=== PATIENT | male | born 2005 | race Caucasian/White ===

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

== ENCOUNTER 2023-07-11 13:32 | Emergency (ER) | payer OTHER, SELFPAY ==
--- NOTE | 2023-07-11 13:36 | ED.SKABFB ---
HPI - Skin/Abscess/Foreign Bdy General Chief complaint: Skin/Abscess/Foreign Body Stated complaint: Skin Sore Source: patient and RN notes reviewed History of Present Illness HPI narrative: 17 yo M presents to urgent care with complaints of a bump to the back of his left ear. Pt states his mom noticed it yesterday. Denies any pain from the bump, drainage, ear pain, fevers, chills, or itchiness to the bump. Related Data Allergies Allergy/AdvReac Type Severity Reaction Status Date / Time No Known Allergies Allergy Verified 05/22/22 10:12 Review of Systems Review of Systems: CONSTITUTIONAL: Denies fever, chills, or sweats. EYES: Denies visual changes, redness, or discharge. ENT: Denies otalgia and sore throat. reports bump to left ear CARDIOVASCULAR: Denies chest pain, palpitations, or edema. RESPIRATORY: Denies cough or dyspnea. GASTROINTESTINAL: Denies abdominal pain, nausea, vomiting, or diarrhea. GENITOURINARY: Denies dysuria or hematuria. SKIN: Denies rash or itching. MUSCULOSKELETAL: Denies back pain, joint pain, or myalgia. NEUROLOGIC: Denies headache, numbness, or weakness. Pertinent positives per HPI. [facility] Past Medical History Medical History (Updated 07/11/23 @ 13:45 by Rand Chávez APRN) Strep pharyngitis Surgical History Surgical History (Updated 05/26/22 @ 09:13 by Sarah Nolasco NP) H/O abdominal surgery Social History Social History (Updated 05/26/22 @ 09:14 by Sarah Nolasco NP) Smoking status: Never smoker Alcohol intake: never Substance use: never Living arrangements: with family Gender identity (if verbalized by the patient): Male Comments At the time of my signature, I reviewed and agree with the nursing past medical, surgical, social, and family history. There is no relevant family history pertinent to the patient complaint. Exam Narrative: GENERAL: This is a well-nourished, well-developed patient, in no apparent distress. HEAD: normocephalic, atraumatic. EYES: Sclera clear/white. Vision is grossly intact. EARS: External ears normal with exception of 1 cm cyst noted to left posterior helix. auditory canals clear and without drainage, TMs normal without perforation. Hearing grossly intact. NOSE: External nose normal with no obvious nasal discharge, nares without redness, no rhinorrhea. THROAT: Mucous membranes moist, posterior pharynx clear. NECK: Neck supple, non-tender without lymphadenopathy, masses or thyromegaly. CARDIOVASCULAR: Regular rate and rhythm without murmurs, gallops, or rubs. RESPIRATORY: Clear to auscultation. Breath sounds equal bilaterally. No wheezes, rales, or rhonchi. SKIN: warm, intact with no suspicious lesions or rash, good texture and turgor. NEURO: awake, alert, and oriented to person, place and time. There were no obvious focal neurologic abnormalities. Course Course Level of Care: Express Care Visit Vital Signs Vital signs: Vital Signs Temperature 98.2 F 07/11/23 13:38 Pulse Rate 114 H 07/11/23 13:38 Respiratory Rate 18 07/11/23 13:38 Blood Pressure 154/81 H 07/11/23 13:38 Pulse Oximetry 100 07/11/23 13:38 Oxygen Delivery Room Air 07/11/23 13:38 Temperature 98.2 F 07/11/23 13:38 Pulse Rate 114 H 07/11/23 13:38 Respiratory Rate 18 07/11/23 13:38 Blood Pressure 154/81 H 07/11/23 13:38 Pulse Oximetry 100 07/11/23 13:38 Oxygen Delivery Room Air 07/11/23 13:38 Reviewed MDM - Skin/Abscess/Foreign Bdy MDM Narrative Medical decision making narrative: May call the plastic surgeon provided for a follow up. Differential Diagnosis Differential diagnosis: Likely abscess of skin or subcutaneous tissue, insect bites and other (cyst) Critical Care Time Critical Care Time Critical Care Time: No Discharge Plan Discharge Clinical Impression: Cyst on ear Patient Disposition: Home, Self-Care Condition: Stable Instructions: Cyst (ED) Additional Instructions: Emily bui
[2023-07-11 13:38] VITALS: BP 154/81; PULSE 114; RESP 18; TEMP 36.8; O2SAT 100
== END 2023-07-11 13:51 | disposition home or self-care (01) ==
PROVIDERS: Emergency Provider Nurse Practitioner Family
DX: Q18.1 Preauricular sinus and cyst (principal)
CPT/HCPCS: 99211; G0463